=== PATIENT | female | born 1960 | race Caucasian/White ===

== ENCOUNTER 2021-03-17 21:17 | Emergency (ER) | payer MEDICARE ==
[~2021-03-17] VITALS: Ht 180.3 cm; Wt 125.6 kg
[2021-03-17] MEDS ORDERED: HYDROCODONE/APAP 10MG-325MG TAB PO ONE (22:15)
== END 2021-03-17 23:25 | disposition home or self-care (01) ==
LOC: ER 21:32
DX: N64.59 Other signs and symptoms in breast (principal); C50.912 Malignant neoplasm of unspecified site of left female breast; R06.02 Shortness of breath; Z85.118 Personal history of other malignant neoplasm of bronchus and lung
CPT/HCPCS: 99283